=== PATIENT | female | born 1950 | race Caucasian/White ===

== ENCOUNTER 2018-04-29 23:30 | Emergency (ER) | payer OTHER ==
[~2018-04-29] VITALS: Ht 162.6 cm; Wt 65.8 kg
[2018-04-29] MEDS ORDERED: LIPITOR20 MG (23:57)
[2018-04-30] MEDS ORDERED: DUI500 PO (02:57)
== END 2018-04-30 03:00 ==
LOC: ER 23:30
DX: S01.02XA Laceration with foreign body of scalp, initial encounter (principal); W01.0XXA Fall on same level from slipping, tripping and stumbling without subsequent striking against object, initial encounter; Y93.89 Activity, other specified; Y92.481 Parking lot as the place of occurrence of the external cause; Y99.8 Other external cause status

== ENCOUNTER 2018-05-09 10:44 | Emergency (ER) | payer OTHER ==
[~2018-05-09] VITALS: Ht 165.1 cm; Wt 71.7 kg
[~2018-05-09 10:44] MED LIST: DUI500 PO; LIPITOR20 MG
[2018-05-09] MEDS ORDERED: ATORVASTATIN CA10 MG PO (11:08)
== END 2018-05-09 12:57 | disposition home or self-care (01) ==
LOC: ER 10:44
DX: Z48.02 Encounter for removal of sutures (principal)